=== PATIENT | female | born 1955 | race Caucasian/White ===

== ENCOUNTER → 2017-07-01 | Outpatient (CLI) | payer OTHER | LOC: RAD 00:45 | DX: Z12.31 Encounter for screening mammogram for malignant neoplasm of breast (principal) ==

== ENCOUNTER → 2017-07-06 | Outpatient (CLI) | payer OTHER | LOC: ULTRA 11:36 | DX: N63.0 Unspecified lump in unspecified breast (principal) ==

== ENCOUNTER → 2018-07-08 | Outpatient (CLI) | payer OTHER | LOC: RAD 07-07 11:51 | DX: Z12.31 Encounter for screening mammogram for malignant neoplasm of breast (principal) ==

== ENCOUNTER → 2019-07-25 | Outpatient (CLI) | payer OTHER, MEDICARE | LOC: RAD 03:41 | DX: Z12.31 Encounter for screening mammogram for malignant neoplasm of breast (principal) ==

== ENCOUNTER → 2019-07-28 | Outpatient (CLI) | payer OTHER, MEDICARE | LOC: ULTRA 04:37 | DX: N63.20 Unspecified lump in the left breast, unspecified quadrant (principal) ==

== ENCOUNTER → 2019-08-02 | Outpatient (CLI) | payer OTHER, MEDICARE ==
--- NOTE | 2019-08-08 13:07 | PATH ---
[facility] [address] [place] [address] PATHOLOGY RPT PROCEDURE Name: ROMÁN TORRE OSCAR Room #: REG [facility] M.R.#: [id number] Admission: 08/02/19 Date of : 53 Discharge: Report #: [id number] Path Case #: [id number] [facility] Accession Number: [id number] . 01 Material submitted: . breast - LEFT BREAST MASS, CENTRAL SUPERIOR. Modifiers: left, central, superior . 01 Clinical history: . Left breast mass . 02 Diagnosis: Breast, left breast mass central superior, needle core biopsy: - INVASIVE MODERATELY DIFFERENTIATED DUCTAL ADENOCARCINOMA, ALEJANDRO GRADE II/III, MEASURING 6 MM IN GREATEST DIMENSION IN A SINGLE CORE IN CONTIGUOUS LENGTH. - DUCTAL CARCINOMA IN SITU, SOLID TYPE AND INTERMEDIATE NUCLEAR GRADE ASSOCIATED WITH COARSE CALCIFICATIONS. (IUV:oriana; 08/03/2019) . . Specimen type: Needle core biopsy Tumor site: Left breast central superior Tumor quantitation: 6 mm Histologic type: Invasive ductal carcinoma and ductal carcinoma in situ Histologic grade: Alejandro Grade II/III Tubules, nuclei and mitoses: 3, 2, and 1, respectively LVSI: Not identified Microcalcifications: Present in DCIS Markers: ER, CA, HER-2/humera, and Ki-67 Block: A2 . Co-review: Dr. Melva Dudley (slide A1, level 13) . Findings of this case are telephoned to Chasidy in our breast center at 1:00 p.m. on 08/03/2019. . (IUV:oriana; 08/03/2019) QMS 08/03/2019 1341 Local . 02 Addendum: . Special studies report received from [facility], [address] [place] [address], [address], [place], [address], on case [id number], labeled with their number [id number], dated 08/06/2019. . Breast/Prognostic Marker Analysis . [address] [address] PATHOLOGY RPT PROCEDURE Name: ROMÁN TORRE OSCAR Room #: REG CL M.Kaylene.#: [id number] Admission: 08/02/19 Date of : 53 Discharge: Report #: [id number] Path Case #: [id number] Specimen Site: Lt Breast Mass, Central Superior, Breast Carcinoma (Biopsy) Specimen ID #: [id number] . (Estrogen Receptor) Present/Positive Percent: 91.78% Analysis: Image Comments: Staining intensity: Moderate to strong . CA (Progesterone Receptor) Present/Positive Percent: 87.57% Analysis: Image Comments: Staining intensity: Moderate to strong . HER2 Not Over-Expressed Score: 0 Analysis: Image . Ki-67 Borderline Proliferation Percent: 11.79% Analysis: Image . Time to Fixation (Cold Ischemic Time): 3 minutes Duration of Fixation: 12 hours and 25 minutes Type of Fixative: 10% Neutral Buffered Formalin . at [employer]. Fide Morrison M.D. Pathologist . . Methodology The HER2 Receptor protein expression is analyzed using the [place] HER2 rabbit monoclonal antibody (clone [id number]). This assay is used for diagnostic determination of the HER2 protein over-expression in paraffin embedded, formalin fixed breast cancer tissue on the 99 Fahrenheit Benchmark. The specimen is processed using a secondary antibody-HRP conjugate detection system. The membrane staining of the tumor is determined either by manual score or image analysis. This antibody is intended for in vitro diagnostic use. The score is reported as 0, 1+, 2+, or 3+. This test is used for clinical purposes. . A rabbit monoclonal antibody (clone SP1) that recognized the Estrogen Receptor is used to perform immunohistochemistry [place] [address] PATHOLOGY RPT PROCEDURE Name: ROMÁN TORRE Room #: REG JAMEL Willoughby#: [id number] Admission: 08/02/19 Date of : 53 Discharge: Report #: [id number] Path Case #: [id number] (formalin) paraffin embedded tissue on the [place] Benchmark. The specimen is processed using a secondary antibody-HRP conjugate detection system. The percentage of stained tumor nuclei is determined either manually or by image analysis. This test is intended for in vitro diagnostic use. This test is used for clinical purposes. . A rabbit monoclonal antibody (clone 1E2) that recognized the Progesterone Receptor is used to perform immunohistochemistry on routinely fixed (formalin) paraffin embedded tissue on the [place] Benchmark. The specimen is processed using a secondary antibody-HRP conjugate detection system. The percentage of stained tumor nuclei is determined either manually or by image analysis. This test is intended for in vitro diagnostic use. This test is used for clinical purposes. . A rabbit monoclonal antibody (clone 30-9) that recognized Ki67 is used to perform immunohistochemistry on routinely fixed (formalin) paraffin embedded tissue on the [place] Benchmark. The specimen is processed using a secondary antibody-HRP conjugate detection system. The percentage of stained tumor nuclei is determined either manually or by image analysis. This test is intended for in vitro diagnostic use. This test is used for clinical purposes. . Intended Use: This antibody is intended for in vitro diagnostic (IVD) use. HER2 (4B5) is a rabbit monoclonal antibody intended for the semi-quantitative detection of HER2 antigen in sections of formalin-fixed, paraffin embedded normal and neoplastic tissue. . This antibody is intended for in vitro diagnostic (IVD) use. Estrogen Receptor (ER) (SP1) is a rabbit monoclonal antibody (IgG) that is intended for the qualitative detection of estrogen receptor (ER) antigen in sections of formalin-fixed, paraffin-embedded tissue. ER is a rabbit monoclonal antibody that recognizes human estrogen receptor alpha. . This antibody is intended for in vitro diagnostic (IVD) use. Progesterone Receptor (CA) (1E2) is a rabbit monoclonal antibody (IgG) that is intended for the qualitative detection of progesterone receptor (CA) antigen in sections of formalin fixed, paraffin embedded tissue. CA is a rabbit monoclonal antibody that recognizes the A and B forms of the human progesterone receptor. . This antibody is intended for in vitro diagnostic (IVD) use. Ki-67 (30-9) is a rabbit monoclonal antibody (IgG) directed against C-terminal portion of Ki-67 antigen. Staining for Ki-67 can be used to aid in assessing the proliferative activity of normal and neoplastic tissue. Ki-67 is a nuclear protein expressed in proliferating cells. During the cell cycle, the Ki-67 antigen is present in the G1, S, G2 and M phase but is absent in the G0 (quiescent phase). [facility] [address] [place] [address] PATHOLOGY RPT PROCEDURE Name: ROMÁN TORRE OSCAR Room #: REG CL Mary.#: [id number] Admission: 08/02/19 Date of : 53 Discharge: Report #: [id number] Path Case #: [id number] . . Disclaimer: This Test was performed by [employer] at [facility], [address]. . [facility] is a business unit of [employer] a wholly-owned subsidiary of [employer]. . This assay has not been validated on decalcified tissues. Results should be interpreted with caution if this specimen was decalcified given the likelihood of false negativity on decalcified specimens. . Any image(s) that accompany this report is/are a circulation sales representative image(s) only and should not be used to render a diagnosis. . This interpretation is contingent on the specimen and the clinical information received. . For any special tests/stains performed, known positive cells or tissues are tested with each marker and examined to ensure positivity. Positive and negative internal controls, if present, react appropriately. . This analysis is an adjunct to the evaluation of the referring physician and does not represent a final diagnosis. . The immunohistochemistry tests performed at [employer] were validated on tissue fixed in 10% neutral buffered formalin. The performance characteristics of the tests performed on tissue processed in other fixatives is not known. . HER2 testing at [employer] is performed in compliance with the 2018 updated ASCO/CAP Clinical Practice Guideline Focused Update. If the result is EQUIVOCAL (2+), it must be confirmed by an alternative assay such as FISH or Dual DANIEL. . REF: Janeth BANERJEE, LIANG Bird et al: Human Epidermal Growth Factor Receptor 2 Testing in Breast Cancer: ASCO/CAP Clinical Practice Guideline Focused Update. J Clin Oncol 36:0858-9819, 2018. . HER2 and ER/CA ASCO/CAP guidelines require fixation in neutral buffered formalin for a minimum of 6 and a maximum of 72 hours. Fixation times less than 6 hours may not adequately preserve cell proteins. Fixation times longer than 72 hours may cause excess cross-linking of proteins reducing the antigen available for staining. Either scenario can cause reduced staining; hence false negative results are possible and should be considered for these situations if the HER2 IHC score is less than 3+ or [facility] [address] [place] [address] PATHOLOGY RPT PROCEDURE Name: ROMÁN TORRE OSCAR Room #: REG Arvin Willoughby#: [id number] Admission: 08/02/19 Date of : 53 Discharge: Report #: [id number] Path Case #: [id number] ER or CA is negative (no staining or <1% positive). It is recommended that specimens fixed longer than 72 hours with HER2 IHC scores less than 3+ be confirmed by HER2 FISH or Dual DANIEL. The time from biopsy/excision to fixation in formalin (cold ischemic time) must be less than 1 hour. Time to fixation (cold ischemic time) greater than 1 hour should be interpreted with caution. HER2 testing, mainly HER2 by FISH, is particularly vulnerable since excessive cold ischemic time results in preferential loss of HER2 probe signals that may lead to false negative results. . SCORE STAINING PATTERN IN TUMOR CELLS INTERPRETATION RESULTS 0 No staining observed or incomplete, faint membrane staining in less than or equal to 10% of tumor cells. Negative 1+ Incomplete, faint membrane staining in greater than 10% of tumor cells. Negative 2+ Weak to moderate complete membrane staining observed in greater than 10% of tumor cells. Equivocal* *Must be confirmed by alternative assay (IHC/FISH/Dual DANIEL) 3+ Intense, complete membrane staining in greater than 10% of tumor cells. Positive . A complete copy of the report is on file. . Professional and Technical services performed by [email or web address] at [address] [place] [address], [address] [address]. . (IUV:amj 08/08/2019) . MBR/08/08/2019 Addendum Electronically Signed by Marii Jeronimo MD, Pathologist . 02 Electronically signed: . Marii Jeronimo MD, Pathologist NPI- [id number] . 01 Gross description: . Received in formalin labeled "Leana, Román, left," and additionally labeled on the requisition as "breast stereotactic biopsy," are multiple needle cores of yellow-javed fibrofatty tissue measuring 3.9 x 4.6 x 0.5 cm in aggregate dimensions. The tissue is submitted in its entirety in cassettes A1-A3. The cold ischemic time is 3 minutes. The total formalin fixation time is 12 hours and [address] [address] PATHOLOGY RPT PROCEDURE Name: ROMÁN TORRE Room #: REG CLI Mary.#: [id number] Admission: 08/02/19 Date of : 53 Discharge: Report #: [id number] Path Case #: [id number] (TSD; 08/02/2019) TOB/TOB 08/02/2019 1845 Local . 02 Pathologist provided ICD-10: C50.912, D05.12 . 02 CPT . 854811 Specimen Comment: A courtesy copy of this report has been sent to [phone], [phone] Specimen Comment: [phone] Specimen Comment: Report sent to / DR CLAIRE Specimen Comment: A duplicate report has been generated due to demographic updates. Performed at: [address] [facility] [address], [place] [id number] MD Isidoro Wooten MD Phone: [phone] Performed at: [address] [facility] [id number] MD Marii Jeronimo MD Phone: [phone]
== END | disposition home or self-care (01) ==
LOC: RADSTEREO 03:41
DX: C50.912 Malignant neoplasm of unspecified site of left female breast (principal)